=== PATIENT | female | born 1955 | race Caucasian/White ===

== ENCOUNTER 2018-11-03 10:18 | Emergency (ER) | payer OTHER ==
--- NOTE | 2018-11-03 11:32 | RAD REPORT ---
EXAM DESCRIPTION: RAD - Chest Pa And Lat (2 Views) - 11/03/2018 11:19 am CLINICAL HISTORY: COUGH Chest pain. COMPARISON: Chest Single View dated 10/21/2016; Chest Single View dated 10/20/2016; Chest Single Vie w dated 10/19/2016; Chest Pa And Lat (2 Views) dated 06/03/2016 FINDINGS: The lungs are clear. The heart is upper limit of normal in size. No displaced fractures. IMPRESSION: No acute or concerning finding suspected.
--- NOTE | 2018-11-03 12:01 | ER ---
Nurse's Notes [facility] Name: Sierra Loaiza Age: 62 yrs Sex: Female : 1955 Arrival Date: 11/03/2018 Time: 10:22 Bed 20 Private MD: Felipe Bailey Diagnosis: Acute bronchitis Presentation: 11/03 10:29 Presenting complaint: Patient states: Cough for 2 weeks with SOB. Patient is in NAD at this time. Has not seen PCP. Transition of care: patient was not received from another setting of care. Onset of symptoms was October 21, 2018. Risk Assessment: Do you want to hurt yourself or someone else? Patient reports no desire to harm self or others. Initial Sepsis Screen: Does the patient meet any 2 criteria? No. Patient's initial sepsis screen is negative. Does the patient have a suspected source of infection? No. Patient's initial sepsis screen is negative. Care prior to arrival: None. 10:29 Method Of Arrival: Ambulatory aj 10:29 Acuity: DENAE 3 aj Triage Assessment: 10:33 General: Appears in no apparent distress. comfortable, Behavior is calm, cooperative, aj appropriate for age. Pain: Denies pain. Neuro: Level of Consciousness is awake, alert, obeys commands, Oriented to person, place, time, situation, Appropriate for age. Respiratory: Reports shortness of breath cough that is Onset: The symptoms/episode began/occurred gradually, the patient has mild shortness of breath. Derm: Skin is intact, is healthy with good turgor, Skin is pink, warm \\T\\ dry. normal. Historical: - Allergies: 10:33 PENICILLINS; aj 10:33 Sulfa (Sulfonamide Antibiotics); aj - Home Meds: 10:33 aspirin 325 mg Oral tab 1 tab once daily [Active]; novalin 70/30 40 units qam [Active]; aj Novalin 70/30 50 units in AM 40 units in PM [Active]; repaglinide 1 mg oral tab 1 tab 3 times per day [Active]; losartan-hydrochlorothiazide 100-25 mg Oral tab 1 tab once daily [Active]; isosorbide mononitrate 30 mg Oral Tb24 1 tab once daily [Active]; citalopram 20 mg tab 1 tab once daily [Active]; levothyroxine 150 mcg tab 1 tab once daily [Active]; omeprazole 20 mg Oral cpDR 1 cap once daily [Active]; potassium chloride 10 mEq Oral cpER 1 cap once daily [Active]; multivitamin Oral cap daily [Active]; meclizine 25 mg Oral tab 1 tab once daily [Active]; furosemide 20 mg Oral tab 1 tab once daily [Active]; ProAir HFA 90 mcg/actuation inhalation HFAA 1 puff every 4 hours [Active]; - PMHx: 10:33 "irregular heart beat"; Diabetes - IDDM; Hypertension; Hypothyroidism; Myocardial aj infarction; - PSHx: 10:33 Cholecystectomy; D \\T\\ C; laminectomy; aj - Immunization history:: Adult Immunizations up to date. - Social history:: Smoking status: Patient/guardian denies using tobacco. - Ebola Screening: : Patient negative for fever greater than or equal to 101.5 degrees Fahrenheit, and additional compatible Ebola Virus Disease symptoms Patient denies exposure to infectious person Patient denies travel to an Ebola-affected area in the 21 days before illness onset No symptoms or risks identified at this time. Screenin:35 Abuse screen: Denies threats or abuse. Denies injuries from another. Nutritional sv screening: No deficits noted. Tuberculosis screening: No symptoms or risk factors identified. Fall Risk None identified. Assessment: 10:45 General: Appears in no apparent distress. uncomfortable, obese, Behavior is calm, sv cooperative, appropriate for age. Neuro: Level of Consciousness is awake, alert, obeys commands, Oriented to person, place, time, situation, Moves all extremities. Full function Gait is steady, Speech is normal. Respiratory: Reports cough that is persistent pain with cough Airway is patent Respiratory effort is even, unlabored, Respiratory pattern is regular, symmetrical. Derm: Skin is pink, warm \\T\\ dry. 12:15 Reassessment: Patient appears in no apparent distress at this time. No changes from sv previously documented assessment. Patient and/or family updated on plan of care and expected duration. Pain level reassessed. Patient is alert, oriented x 3, equal unlabored respirations, skin warm/dry/pink. Vital Signs: 10:33 BP 128 / 62; Pulse 72; Resp 19; Temp 97.0; Pulse Ox 100% on R/A; Weight 113.4 kg; aj Height 5 ft. 7 in. (170.18 cm); 10:33 Body Mass Index 39.16 (113.40 kg, 170.18 cm) ED Course: 10:22 Patient arrived in ED. sb2 10:23 Felipe Bailey DO is Private Physician. sb2 10:30 Triage completed. aj 10:33 Arm band placed on right wrist. Patient placed in an exam room. aj 10:35 Milagros Herring, RN is Primary Nurse. sv 10:35 Patient has correct armband on for positive identification. Bed in low position. sv 10:37 Yvonne Fletcher FNP-C is PHCP. kb 10:37 Colten Blair MD is Attending Physician. kb 11:18 Chest Pa And Lat (2 Views) XRAY In Process Unspecified. EDMS 12:18 No provider procedures requiring assistance completed. Patient did not have IV access sv during this emergency room visit. Administered Medications: No medications were administered Outcome: 12:01 Discharge ordered by MD. kb 12:18 Patient left the ED. sv 12:18 Discharged to home ambulatory. sv 12:18 Condition: stable 12:18 Discharge instructions given to patient, Instructed on discharge instructions, follow up and referral plans. medication usage, Demonstrated understanding of instructions, follow-up care, medications, Prescriptions given X 1. Signatures: Dispatcher [employer] EDMS Yvonne Fletcher FNP-C FNP-Milagros Chaparro, RN Miranda Staples RN RN Ana Cristina Denis sb2
--- NOTE | 2018-11-03 12:01 | EDPHYS ---
Physician Documentation [facility] Name: Sierra Loaiza Age: 62 yrs Sex: Female : 1955 Arrival Date: 11/03/2018 Time: 10:22 Bed 20 Private MD: Felipe Bailey ED Physician Colten Blair HPI: 11/03 10:57 This 62 yrs old Female presents to ER via Ambulatory with complaints of kb Productive Cough, Body Aches. 10:57 The patient or guardian reports cough, that is intermittent, described as moderate, kb with productive sputum, flu symptoms, arthralgias, myalgias. Onset: The symptoms/episode began/occurred 1.5 week(s) ago. Severity of symptoms: At their worst the symptoms were mild, moderate, in the emergency department the symptoms are unchanged. Modifying factors: The symptoms are alleviated by nothing, the symptoms are aggravated by nothing. Associated signs and symptoms: Pertinent positives: rhinorrhea, Pertinent negatives: chest pain, diarrhea, ear ache, fever, nausea, sore throat, vomiting. The patient has not experienced similar symptoms in the past. The patient has not recently seen a physician. Pt reports cough, congestion, chills, body aches since before . Historical: - Allergies: 10:33 PENICILLINS; aj 10:33 Sulfa (Sulfonamide Antibiotics); aj - Home Meds: 10:33 aspirin 325 mg Oral tab 1 tab once daily [Active]; novalin 70/30 40 units qam [Active]; aj Novalin 70/30 50 units in AM 40 units in PM [Active]; repaglinide 1 mg oral tab 1 tab 3 times per day [Active]; losartan-hydrochlorothiazide 100-25 mg Oral tab 1 tab once daily [Active]; isosorbide mononitrate 30 mg Oral Tb24 1 tab once daily [Active]; citalopram 20 mg tab 1 tab once daily [Active]; levothyroxine 150 mcg tab 1 tab once daily [Active]; omeprazole 20 mg Oral cpDR 1 cap once daily [Active]; potassium chloride 10 mEq Oral cpER 1 cap once daily [Active]; multivitamin Oral cap daily [Active]; meclizine 25 mg Oral tab 1 tab once daily [Active]; furosemide 20 mg Oral tab 1 tab once daily [Active]; ProAir HFA 90 mcg/actuation inhalation HFAA 1 puff every 4 hours [Active]; - PMHx: 10:33 "irregular heart beat"; Diabetes - IDDM; Hypertension; Hypothyroidism; Myocardial aj infarction; - PSHx: 10:33 Cholecystectomy; D \\T\\ C; laminectomy; aj - Immunization history:: Adult Immunizations up to date. - Social history:: Smoking status: Patient/guardian denies using tobacco. - Ebola Screening: : Patient negative for fever greater than or equal to 101.5 degrees Fahrenheit, and additional compatible Ebola Virus Disease symptoms Patient denies exposure to infectious person Patient denies travel to an Ebola-affected area in the 21 days before illness onset No symptoms or risks identified at this time. ROS: 10:56 ENT: Negative for injury, pain, and discharge, Neck: Negative for injury, pain, and kb swelling, Cardiovascular: Negative for chest pain, palpitations, and edema, Abdomen/GI: Negative for abdominal pain, nausea, vomiting, diarrhea, and constipation, Back: Negative for injury and pain, MS/Extremity: Negative for injury and deformity, Skin: Negative for injury, rash, and discoloration, Neuro: Negative for headache, weakness, numbness, tingling, and seizure. 10:56 Constitutional: Positive for body aches, chills, fatigue, malaise, Negative for fever, poor PO intake, weight loss. 10:56 Respiratory: Positive for cough, "sounds productive", Negative for dyspnea on exertion, hemoptysis, orthopnea, pleurisy, shortness of breath, wheezing. Exam: 10:57 Constitutional: This is a well developed, well nourished patient who is awake, alert, kb and in no acute distress. Head/Face: Normocephalic, atraumatic. ENT: Nares patent. No nasal discharge, no septal abnormalities noted. Tympanic membranes are normal and external auditory canals are clear. Oropharynx with no redness, swelling, or masses, exudates, or evidence of obstruction, uvula midline. Mucous membranes moist. Neck: Trachea midline, no thyromegaly or masses palpated, and no cervical lymphadenopathy. Supple, full range of motion without nuchal rigidity, or vertebral point tenderness. No Meningismus. Chest/axilla: Normal chest wall appearance and motion. Nontender with no deformity. No lesions are appreciated. Cardiovascular: Regular rate and rhythm with a normal S1 and S2. No gallops, murmurs, or rubs. Normal PMI, no JVD. No pulse deficits. Respiratory: Lungs have equal breath sounds bilaterally, clear to auscultation and percussion. No rales, rhonchi or wheezes noted. No increased work of breathing, no retractions or nasal flaring. Abdomen/GI: Soft, non-tender, with normal bowel sounds. No distension or tympany. No guarding or rebound. No evidence of tenderness throughout. Skin: Warm, dry with normal turgor. Normal color with no rashes, no lesions, and no evidence of cellulitis. MS/ Extremity: Pulses equal, no cyanosis. Neurovascular intact. Full, normal range of motion. Neuro: Awake and alert, GCS 15, oriented to person, place, time, and situation. Cranial nerves II-XII grossly intact. Motor strength 5/5 in all extremities. Sensory grossly intact. Cerebellar exam normal. Normal gait. Vital Signs: 10:33 BP 128 / 62; Pulse 72; Resp 19; Temp 97.0; Pulse Ox 100% on R/A; Weight 113.4 kg; aj Height 5 ft. 7 in. (170.18 cm); 10:33 Body Mass Index 39.16 (113.40 kg, 170.18 cm) aj MDM: 10:37 Patient medically screened. kb 10:57 Data reviewed: vital signs, nurses notes. Data interpreted: Pulse oximetry: on room air kb is 100 %. Interpretation: normal. 12:00 Counseling: I had a detailed discussion with the patient and/or guardian regarding: the kb historical points, exam findings, and any diagnostic results supporting the discharge/admit diagnosis, lab results, radiology results, the need for outpatient follow up, a family practitioner, to return to the emergency department if symptoms worsen or persist or if there are any questions or concerns that arise at home. 11/03 10:36 Order name: Flu; Complete Time: 11:09 sv 11/03 10:36 Order name: Strep; Complete Time: 11: sv 11/03 10:40 Order name: Chest Pa And Lat (2 Views) XRAY; Complete Time: 11:35 kb 11/03 11:08 Order name: Throat Culture EDMS Administered Medications: No medications were administered Disposition: 15:06 Co-signature as Attending Physician, Colten KELLY I agree with the assessment and [facility] plan of care. Disposition: 11/03/18 12:01 Discharged to Home. Impression: Acute bronchitis. - Condition is Stable. - Discharge Instructions: Acute Bronchitis, [id number]. - Prescriptions for Prednisone 20 mg Oral Tablet - take 1 tablet by ORAL route once daily for 5 days; 5 tablet. - Medication Reconciliation Form, Thank You Letter, Antibiotic Education, Prescription Opioid Use form. - Follow up: Emergency Department; When: As needed; Reason: Worsening of condition. Follow up: Private Physician; When: 2 - 3 days; Reason: Recheck today's complaints, Continuance of care, Re-evaluation by your physician. Signatures: Dispatcher [employer] Yvonne Vitale FNP-C FNP-Milagros Chaparro RN Miranda Staples RN RN aj Anderson, Corey, MD MD cha Corrections: (The following items were deleted from the chart) 12:18 12:01 11/03/2018 12:01 Discharged to Home. Impression: Acute bronchitis. Condition is sv Stable. Forms are Medication Reconciliation Form, Thank You Letter, Antibiotic Education, Prescription Opioid Use. Follow up: Emergency Department; When: As needed; Reason: Worsening of condition. Follow up: Private Physician; When: 2 - 3 days; Reason: Recheck today's complaints, Continuance of care, Re-evaluation by your physician. kb
[2018-11-03 12:35] VITALS: BP 128/62; TEMP 97; O2SAT 100
== END 2018-11-03 12:18 | disposition home or self-care (01) ==
LOC: ER 10:18
DX: J20.9 Acute bronchitis, unspecified (principal); E11.9 Type 2 diabetes mellitus without complications; I10 Essential (primary) hypertension; E03.9 Hypothyroidism, unspecified; Z88.0 Allergy status to penicillin; Z88.2 Allergy status to sulfonamides
CPT/HCPCS: 71046; 87070; 87081; 87804; 99283

== ENCOUNTER 2018-12-20 19:21 | Emergency (ER) | payer OTHER ==
--- NOTE | 2018-12-20 20:29 | EDPHYS ---
Physician Documentation [facility] Name: Sierra Loaiza Age: 63 yrs Sex: Female : 1955 Arrival Date: 12/20/2018 Time: 19:30 Bed 18 Private MD: ED Physician Jf Vigil HPI: 12/20 20:26 This 63 yrs old Female presents to ER via Ambulatory with complaints of RAT ma2 BITE. 20:26 Onset: The symptoms/episode began/occurred suddenly, 1 day(s) ago. Animal information: ma2 Patient/Caregiver unable to provide information related to the animal. Associated signs and symptoms: Pertinent negatives: fever, motor deficit, numbness distal to wound. Severity of symptoms: At their worst the symptoms were mild, in the emergency department the symptoms have resolved. The patient has not experienced similar symptoms in the past. Historical: - Allergies: 20:20 PENICILLINS; bb 20:20 Sulfa (Sulfonamide Antibiotics); bb 20:20 jasmin; bb - Home Meds: 20:20 aspirin 325 mg Oral tab 1 tab once daily [Active]; citalopram 20 mg tab 1 tab once bb daily [Active]; furosemide 20 mg Oral tab 1 tab once daily [Active]; isosorbide mononitrate 30 mg Oral Tb24 1 tab once daily [Active]; levothyroxine 150 mcg tab 1 tab once daily [Active]; losartan-hydrochlorothiazide 100-25 mg Oral tab 1 tab once daily [Active]; meclizine 25 mg Oral tab 1 tab once daily [Active]; multivitamin Oral cap daily [Active]; novalin 70/30 40 units qam [Active]; Novalin 70/30 50 units in AM 40 units in PM [Active]; omeprazole 20 mg Oral cpDR 1 cap once daily [Active]; potassium chloride 10 mEq Oral cpER 1 cap once daily [Active]; ProAir HFA 90 mcg/actuation inhalation HFAA 1 puff every 4 hours [Active]; repaglinide 1 mg Oral tab 1 tab 3 times per day [Active]; - PMHx: 20:20 "irregular heart beat"; Diabetes - IDDM; Hypertension; Hypothyroidism; Myocardial bb infarction; - PSHx: 20:20 Cholecystectomy; D \\T\\ C; laminectomy; bb - Immunization history:: Adult Immunizations up to date, Last tetanus immunization: unknown. - Social history:: Smoking status: unknown Patient/guardian denies using alcohol, street drugs, The patient lives with family. - Ebola Screening: : No symptoms or risks identified at this time. - Family history:: not pertinent. ROS: 20:26 Constitutional: Negative for fever, chills, and weight loss. ma2 20:26 All other systems are negative. Exam: 20:26 Constitutional: This is a well developed, well nourished patient who is awake, alert, ma2 and in no acute distress. Chest/axilla: Normal chest wall appearance and motion. Nontender with no deformity. No lesions are appreciated. Cardiovascular: Regular rate and rhythm with a normal S1 and S2. No gallops, murmurs, or rubs. Normal PMI, no JVD. No pulse deficits. Respiratory: Lungs have equal breath sounds bilaterally, clear to auscultation and percussion. No rales, rhonchi or wheezes noted. No increased work of breathing, no retractions or nasal flaring. Abdomen/GI: Soft, non-tender, with normal bowel sounds. No distension or tympany. No guarding or rebound. No evidence of tenderness throughout. Skin: Warm, dry with normal turgor. Normal color with no rashes, no lesions, and no evidence of cellulitis. Vital Signs: 20:20 BP 153 / 72; Pulse 72; Resp 16 S; Temp 98.1(O); Pulse Ox 98% on R/A; Weight 116.12 kg bb (R); Height 5 ft. 7 in. (170.18 cm) (R); Pain 6/10; 20:20 Body Mass Index 40.09 (116.12 kg, 170.18 cm) bb MDM: 20:25 Patient medically screened. ma2 20:26 Differential diagnosis: superficial laceration. Data reviewed: vital signs, nurses ma2 notes. Counseling: I had a detailed discussion with the patient and/or guardian regarding: the historical points, exam findings, and any diagnostic results supporting the discharge/admit diagnosis, the presence of at least one elevated blood pressure reading (>120/80) during this emergency department visit, the need for outpatient follow up. Administered Medications: 20:45 Drug: Tetanus-Diphtheria Toxoid Adult 0.5 ml {Mixologist: Reissued. Exp: jb4 11/02/2020. Lot #: [id number]. } Route: IM; Site: right deltoid; 21:03 Follow up: Response: No adverse reaction jb4 Disposition: 12/20/18 20:28 Discharged to Home. Impression: Bitten by mouse. - Condition is Stable. - Discharge Instructions: Animal Bite. - Medication Reconciliation Form, Thank You Letter, Antibiotic Education, Prescription Opioid Use form. - Follow up: Private Physician; When: Tomorrow; Reason: Continuance of care. Signatures: Rosalva Perkins RN RN Yeyo Mahoney RN RN jb4 Jf Vigil MD MD ma2 Corrections: (The following items were deleted from the chart) 21:03 20:28 12/20/2018 20:28 Discharged to Home. Impression: Bitten by mouse. Condition is jb4 Stable. Forms are Medication Reconciliation Form, Thank You Letter, Antibiotic Education, Prescription Opioid Use. Follow up: Private Physician; When: Tomorrow; Reason: Continuance of care. ma2
--- NOTE | 2018-12-20 20:29 | ER ---
Nurse's Notes [facility] Name: Sierra Loaiza Age: 63 yrs Sex: Female : 1955 Arrival Date: 12/20/2018 Time: 19:30 Bed 18 Private MD: Diagnosis: Bitten by mouse Presentation: 12/20 20:15 Presenting complaint: Patient states: pt was bit by a mouse she had trapped yesterday bb on her left thumb. Transition of care: patient was not received from another setting of care. Onset of symptoms was December 19, 2018. Risk Assessment: Do you want to hurt yourself or someone else? Patient reports no desire to harm self or others. Initial Sepsis Screen: Does the patient meet any 2 criteria? No. Patient's initial sepsis screen is negative. Does the patient have a suspected source of infection? No. Patient's initial sepsis screen is negative. Care prior to arrival: None. 20:15 Method Of Arrival: Ambulatory bb 20:15 Acuity: DENAE 4 bb Historical: - Allergies: 20:20 PENICILLINS; bb 20:20 Sulfa (Sulfonamide Antibiotics); bb 20:20 jasmin; bb - Home Meds: 20:20 aspirin 325 mg Oral tab 1 tab once daily [Active]; citalopram 20 mg tab 1 tab once bb daily [Active]; furosemide 20 mg Oral tab 1 tab once daily [Active]; isosorbide mononitrate 30 mg Oral Tb24 1 tab once daily [Active]; levothyroxine 150 mcg tab 1 tab once daily [Active]; losartan-hydrochlorothiazide 100-25 mg Oral tab 1 tab once daily [Active]; meclizine 25 mg Oral tab 1 tab once daily [Active]; multivitamin Oral cap daily [Active]; novalin 70/30 40 units qam [Active]; Novalin 70/30 50 units in AM 40 units in PM [Active]; omeprazole 20 mg Oral cpDR 1 cap once daily [Active]; potassium chloride 10 mEq Oral cpER 1 cap once daily [Active]; ProAir HFA 90 mcg/actuation inhalation HFAA 1 puff every 4 hours [Active]; repaglinide 1 mg Oral tab 1 tab 3 times per day [Active]; - PMHx: 20:20 "irregular heart beat"; Diabetes - IDDM; Hypertension; Hypothyroidism; Myocardial bb infarction; - PSHx: 20:20 Cholecystectomy; D \\T\\ C; laminectomy; bb - Immunization history:: Adult Immunizations up to date, Last tetanus immunization: unknown. - Social history:: Smoking status: unknown Patient/guardian denies using alcohol, street drugs, The patient lives with family. - Ebola Screening: : No symptoms or risks identified at this time. - Family history:: not pertinent. Screenin:25 Abuse screen: Denies threats or abuse. Nutritional screening: No deficits noted. jb4 Tuberculosis screening: No symptoms or risk factors identified. Fall Risk None identified. Assessment: 20:25 General: Appears in no apparent distress. comfortable, Behavior is calm, cooperative, jb4 appropriate for age. Pain: Complains of pain in palmar aspect of distal phalanx of left thumb Pain does not radiate. Pain currently is 0 out of 10 on a pain scale. Neuro: Level of Consciousness is awake, alert, obeys commands, Oriented to person, place, time, situation. Cardiovascular: Patient's skin is warm and dry. Respiratory: Airway is patent Respiratory effort is even, unlabored, Respiratory pattern is regular, symmetrical. GI: No signs and/or symptoms were reported involving the gastrointestinal system. : No signs and/or symptoms were reported regarding the genitourinary system. EENT: No signs and/or symptoms were reported regarding the EENT system. Derm: Skin is intact, Skin is pink, warm \\T\\ dry. Musculoskeletal: Circulation, motion, and sensation intact. Vital Signs: 20:20 BP 153 / 72; Pulse 72; Resp 16 S; Temp 98.1(O); Pulse Ox 98% on R/A; Weight 116.12 kg bb (R); Height 5 ft. 7 in. (170.18 cm) (R); Pain 6/10; 20:20 Body Mass Index 40.09 (116.12 kg, 170.18 cm) ED Course: 19:30 Patient arrived in ED. es 20:17 Triage completed. bb 20:20 Arm band placed on Patient placed in an exam room, on a stretcher, on pulse oximetry. bb Family accompanied patient. 20:25 Jf Vigil MD is Attending Physician. ma2 20:25 Patient has correct armband on for positive identification. Bed in low position. Call jb4 light in reach. Side rails up X 1. Pulse ox on. NIBP on. 20:27 Yeyo Monson, RN is Primary Nurse. jb4 21:01 No provider procedures requiring assistance completed. Patient did not have IV access jb4 during this emergency room visit. Administered Medications: 20:45 Drug: Tetanus-Diphtheria Toxoid Adult 0.5 ml {Library Consultant: [employer]. Exp: jb4 11/02/2020. Lot #: [id number]. } Route: IM; Site: right deltoid; 21:03 Follow up: Response: No adverse reaction jb4 Outcome: 20:28 Discharge ordered by MD. mulligan 21:01 Discharged to home ambulatory. jb4 21:01 Condition: stable 21:01 Discharge instructions given to patient, Instructed on discharge instructions, follow up and referral plans. Demonstrated understanding of instructions, follow-up care. 21:03 Patient left the ED. jb Signatures: Argenis Hawthorne Brenda, RN RN bb Bryson, James, GABRIEL RIOS jb4 Jf Vigil MD MD ma2
[2018-12-20] MEDS ORDERED: TETANUS & DIPHTHERIA TOX,ADULT 0.5 ML VIAL ONE (20:47)
[2018-12-20 22:19] VITALS: BP 153/72; TEMP 98.1; O2SAT 98
== END 2018-12-20 21:03 | disposition home or self-care (01) ==
LOC: ER 19:21
DX: S61.259A Open bite of unspecified finger without damage to nail, initial encounter (principal); W53.01XA Bitten by mouse, initial encounter; E11.9 Type 2 diabetes mellitus without complications; I10 Essential (primary) hypertension; E03.9 Hypothyroidism, unspecified; I25.2 Old myocardial infarction; Z79.82 Long term (current) use of aspirin; Z79.4 Long term (current) use of insulin; Z88.0 Allergy status to penicillin; Z88.2 Allergy status to sulfonamides
CPT/HCPCS: 90714; 99283

== ENCOUNTER → 2021-07-31 | Day surgery (SDC) | payer OTHER ==
--- NOTE | 2021-07-31 15:45 | RAD REPORT ---
EXAM DESCRIPTION: US - Breast Core BX w/US Guidance - 07/31/2021 10:24 am CLINICAL HISTORY: ICD R 92.8 COMPARISON: March 20, 2021 ultrasound TECHNIQUE: The risks, benefits alternatives to the procedure were explained to the patient and infor med consent obtained. Skin and subcutaneous tissues anesthetized with lidocaine. Under sonographic guidance, 5 core biopsies of the mass at the 3 o'clock position in the right breast was obtained. 2 centimeter specimens taken. Tissue given to pathology. Subsequently a localizing clip was placed into the mass. Patient experienced no immediate complication IMPRESSION: Technically successful ultrasound-guided core biopsy of a suspicious lesion in the right breast.
== END ==
LOC: DS 09:36
PROVIDERS: ATTEND Clinical Nurse Specialist Women's Health
DX: R92.8 Other abnormal and inconclusive findings on diagnostic imaging of breast (principal)
CPT/HCPCS: 19083; 88305

== ENCOUNTER 2021-08-27 10:40 | Emergency (ER) | payer OTHER ==
[2021-08-27 11:25] LABS: Absolute Lymphocytes (CBC) 1.9 K/uL (0.7-4.9); Basophils % 0.7 % (0-1.3); Hematocrit 41.5 % (36.0-45.0); Lymphocytes % 25.8 % (15.3-44.8); MPV 7.4 fL (7.6-11.3); RBC Red Blood Cell Count 4.63 M/uL (3.86-4.86)
[2021-08-27 11:40] LABS: Albumin 3.5 g/dL (3.4-5.0); Bilirubin Direct 0.2 mg/dL (0-0.2); Bilirubin Total 0.6 mg/dL (0.2-1.0); Magnesium 2.5 mg/dL (1.8-2.4); Potassium 4.2 mmol/L (3.5-5.1); Protein, Total 7.7 g/dL (6.4-8.2)
[2021-08-27] MEDS ORDERED: NA CHLORIDE 0.9% 500 ML ONE (11:45)
[2021-08-27 12:30] LABS: Protime INR 0.96
--- NOTE | 2021-08-27 12:31 | EDPHYS ---
Physician Documentation [facility] Name: Sierra Loaiza Age: 65 yrs Sex: Female : 1955 Arrival Date: 08/27/2021 Time: 10:41 Bed 23 Private MD: Devan Thurman F; Vang, Na ED Physician Blane Russell HPI: 08/27 11:54 This 65 yrs old Female presents to ER via Wheelchair with complaints of Blood jr8 Pressure Problem, Dizziness. 11:54 Onset: The symptoms/episode began/occurred acutely, just prior to arrival, today. jr8 Associated signs and symptoms: Pertinent positives: Lightheadedness. Modifying factors: The patient symptoms are alleviated by rest, the patient symptoms are aggravated by Standing up. The patient has experienced similar episodes in the past, a few times. The patient has not recently seen a physician. This is a 65-year-old female that presented to the emergency room for dizziness and low blood pressure symptoms. Patient stated that her blood pressure was in the 80s this morning. Had gotten up and felt lightheaded. Has had this happen in the past. Has had no recent adjustment in medications. Patient currently feeling generally fatigued but all other symptoms have resolved at this time. Currently being seen by cardiology for frequent arrhythmia and is about to have a Holter monitor placed on her. 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 Historical: - Allergies: 10:46 NEERU; tw5 10:46 PENICILLINS; tw5 10:46 Sulfa (Sulfonamide Antibiotics); tw5 - Home Meds: 11:02 aspirin 325 mg Oral tab 1 tab once daily [Active]; citalopram 20 mg tab 1 tab once jw6 daily [Active]; furosemide 20 mg Oral tab 1 tab once daily [Active]; isosorbide mononitrate 30 mg Oral Tb24 1 tab once daily [Active]; levothyroxine 150 mcg tab 1 tab once daily [Active]; losartan-hydrochlorothiazide 100-25 mg Oral tab 1 tab once daily [Active]; meclizine 25 mg Oral tab 1 tab once daily [Active]; multivitamin Oral cap daily [Active]; novalin 70/30 40 units qam [Active]; Novalin 70/30 50 units in AM 40 units in PM [Active]; omeprazole 20 mg Oral cpDR 1 cap once daily [Active]; potassium chloride 10 mEq Oral cpER 1 cap once daily [Active]; ProAir HFA 90 mcg/actuation inhalation HFAA 1 puff every 4 hours [Active]; repaglinide 1 mg Oral tab 1 tab 3 times per day [Active]; - PMHx: 10:46 "irregular heart beat"; Diabetes - IDDM; Hypertension; Hypothyroidism; Myocardial tw5 infarction; - PSHx: 10:46 Cholecystectomy; laminectomy 1999; hysterectomy april 2020; tw5 - Immunization history:: Client reports receiving the 2nd dose of the Covid vaccine. - Social history:: Smoking status: Patient denies any tobacco usage or history of. ROS: 11:54 Eyes: Negative for injury, pain, redness, and discharge, ENT: Negative for injury, jr8 pain, and discharge, Neck: Negative for injury, pain, and swelling, Cardiovascular: Negative for chest pain, palpitations, and edema, Respiratory: Negative for shortness of breath, cough, wheezing, and pleuritic chest pain, Abdomen/GI: Negative for abdominal pain, nausea, vomiting, diarrhea, and constipation, Back: Negative for injury and pain, MS/Extremity: Negative for injury and deformity, Skin: Negative for injury, rash, and discoloration. 11:54 Neuro: Positive for dizziness. Exam: 11:54 Constitutional: This is a well developed, well nourished patient who is awake, alert, jr8 and in no acute distress. Eyes: Pupils equal round and reactive to light, extra-ocular motions intact. Lids and lashes normal. Conjunctiva and sclera are non-icteric and not injected. Cornea within normal limits. Periorbital areas with no swelling, redness, or edema. Neck: Trachea midline, no thyromegaly or masses palpated, and no cervical lymphadenopathy. Supple, full range of motion without nuchal rigidity, or vertebral point tenderness. No Meningismus. Cardiovascular: Regular rate and rhythm with a normal S1 and S2. No gallops, murmurs, or rubs. Normal PMI, no JVD. No pulse deficits. Respiratory: Lungs have equal breath sounds bilaterally, clear to auscultation and percussion. No rales, rhonchi or wheezes noted. No increased work of breathing, no retractions or nasal flaring. Abdomen/GI: Soft, non-tender, with normal bowel sounds. No distension or tympany. No guarding or rebound. No evidence of tenderness throughout. Back: No spinal tenderness. No costovertebral tenderness. Full range of motion. Skin: Warm, dry with normal turgor. Normal color with no rashes, no lesions, and no evidence of cellulitis. MS/ Extremity: Pulses equal, no cyanosis. Neurovascular intact. Full, normal range of motion. Neuro: Awake and alert, GCS 15, oriented to person, place, time, and situation. Cranial nerves II-XII grossly intact. Motor strength 5/5 in all extremities. Sensory grossly intact. Cerebellar exam normal. Vital Signs: 10:43 BP 139 / 55; Pulse 72; Resp 18; Temp 97.9(O); Pulse Ox 98% on R/A; Weight 113.85 kg; tw5 Height 5 ft. 7 in. (170.18 cm); Pain 0/10; 11:00 BP 130 / 58; Pulse 69; Resp 16; Pulse Ox 96% on R/A; jw6 11:00 Temp 98.1(O); jw6 11:06 Weight 114.76 kg; Height 5 ft. 7 in. (170.18 cm); Pain 0/10; jw6 11:30 BP 123 / 70 Supine; Pulse 67; Resp 15; Pulse Ox 95% on R/A; jw6 11:30 BP 114 / 71 Sitting; Pulse 70; Resp 15; Pulse Ox 98% on R/A; jw6 11:30 BP 102 / 64 Standing; Pulse 77; Resp 16; Pulse Ox 98% on R/A; jw6 12:30 BP 123 / 55; Pulse 73; Resp 15; Pulse Ox 99% ; jl7 11:06 Body Mass Index 39.62 (114.76 kg, 170.18 cm) jw6 MDM: 11:00 Patient medically screened. 8 12:30 Data reviewed: vital signs, nurses notes, lab test result(s), EKG. Data interpreted: jr8 Pulse oximetry: on room air is 98 %. Interpretation: normal. Counseling: I had a detailed discussion with the patient and/or guardian regarding: the historical points, exam findings, and any diagnostic results supporting the discharge/admit diagnosis, lab results, the need for outpatient follow up, a comedian, a family practitioner, to return to the emergency department if symptoms worsen or persist or if there are any questions or concerns that arise at home. Response to treatment: the patient's symptoms have markedly improved after treatment. ED course: Patient no longer feeling dizzy. Was able to get up and mobilize without any complaints. Hemodynamically stable at this time. Will discharge home to follow with cardiology. Knows to come back for further evaluations if she were to worsen.. 08/27 11:08 Order name: CBC with Diff 08/27 11:08 Order name: PT-INR 08/27 11:07 Order name: Finger Stick; Complete Time: 11:07 [facility] 08/27 11:08 Order name: Troponin (emerg Dept Use Only) 08/27 11:08 Order name: EKG; Complete Time: 12:19 08/27 11:08 Order name: Cardiac monitoring; Complete Time: 11: [facility] 08/27 11:08 Order name: EKG - Nurse/Tech; Complete Time: 11:17 08/27 11:08 Order name: IV Saline Lock; Complete Time: 11:17 08/27 11:08 Order name: Labs collected and sent; Complete Time: 11: 08/27 11:08 Order name: O2 Per Protocol; Complete Time: 11:08/27 11:08 Order name: O2 Sat Monitoring; Complete Time: 11:17 08/27 11:08 Order name: Orthostatics; Complete Time: 11:29 [facility] 08/27 12:13 Order name: Labs - recollect needed: recollect light blue; Complete Time: 12:19 bd Administered Medications: 11:29 Drug: NS 0.9% 500 ml Route: IV; Rate: bolus; Site: right antecubital; jw6 12:13 Follow up: Response: No adverse reaction; IV Status: Completed infusion; IV Intake: jw6 500ml Disposition: 16:28 Co-signature as Attending Physician, Blane Russell MD I agree with the assessment and rn plan of care. Attestation: The patient's history, exam findings, diagnostics, and a summary of any interventions or procedures was reviewed in detail with Eladio DIALLO. Disposition Summary: 08/27/21 12:31 Discharge Ordered Location: Home jr8 Problem: new jr8 Symptoms: have improved jr8 Condition: Stable jr8 Diagnosis - Orthostatic hypotension jr8 Followup: jr8 - With: Devan Thurman MD - When: 2 - 3 days - Reason: Recheck today's complaints, Continuance of care, Re-evaluation by your physician Discharge Instructions: - Discharge Summary Sheet jr8 - Orthostatic Hypotension jr8 Forms: - Medication Reconciliation Form jr8 - Thank You Letter jr8 - Antibiotic Education jr8 - Prescription Opioid Use jr8 Signatures: Dispatcher [employer] EDMS Alison Emery Roman, MD MD rn Eladio Herrera PA PA jr8 Vanna Castaneda tw5 Olamide Hester jw6
--- NOTE | 2021-08-27 12:31 | ER ---
Nurse's Notes [facility] Name: Sierra Loaiza Age: 65 yrs Sex: Female : 1955 Arrival Date: 08/27/2021 Time: 10:41 Bed 23 Private MD: Devan Thurman F; Vang, Na Diagnosis: Orthostatic hypotension Presentation: 08/27 10:43 Chief complaint: Patient states: " I got up dizzy this morning, I took my BP this tw5 morning and it was 81/60. I still don't feel real good." Patient denies nausea or vomiting. Patient denies syncope. " I have just been a little wobbly so I have been moving slow". Coronavirus screen: Vaccine status: Patient reports receiving the 2nd dose of the covid vaccine. Date June 21, 2021. Ebola Screen: Patient negative for fever greater than or equal to 101.5 degrees Fahrenheit, and additional compatible Ebola Virus Disease symptoms Patient denies exposure to infectious person. Patient denies travel to an Ebola-affected area in the 21 days before illness onset. Initial Sepsis Screen: Does the patient meet any 2 criteria? No. Patient's initial sepsis screen is negative. Does the patient have a suspected source of infection? No. Patient's initial sepsis screen is negative. Risk Assessment: Do you want to hurt yourself or someone else? Patient reports no desire to harm self or others. Onset of symptoms was August 27, 2021. 10:43 Method Of Arrival: Wheelchair tw5 10:43 Acuity: DENAE 3 tw5 Triage Assessment: 10:46 General: Appears in no apparent distress. Behavior is calm, cooperative. Pain: Denies tw5 pain. Cardiovascular:. Historical: - Allergies: 10:46 NEERU; tw5 10:46 PENICILLINS; tw5 10:46 Sulfa (Sulfonamide Antibiotics); tw5 - Home Meds: 11:02 aspirin 325 mg Oral tab 1 tab once daily [Active]; citalopram 20 mg tab 1 tab once jw6 daily [Active]; furosemide 20 mg Oral tab 1 tab once daily [Active]; isosorbide mononitrate 30 mg Oral Tb24 1 tab once daily [Active]; levothyroxine 150 mcg tab 1 tab once daily [Active]; losartan-hydrochlorothiazide 100-25 mg Oral tab 1 tab once daily [Active]; meclizine 25 mg Oral tab 1 tab once daily [Active]; multivitamin Oral cap daily [Active]; novalin 70/30 40 units qam [Active]; Novalin 70/30 50 units in AM 40 units in PM [Active]; omeprazole 20 mg Oral cpDR 1 cap once daily [Active]; potassium chloride 10 mEq Oral cpER 1 cap once daily [Active]; ProAir HFA 90 mcg/actuation inhalation HFAA 1 puff every 4 hours [Active]; repaglinide 1 mg Oral tab 1 tab 3 times per day [Active]; - PMHx: 10:46 "irregular heart beat"; Diabetes - IDDM; Hypertension; Hypothyroidism; Myocardial tw5 infarction; - PSHx: 10:46 Cholecystectomy; laminectomy 1999; hysterectomy april 2020; tw5 - Immunization history:: Client reports receiving the 2nd dose of the Covid vaccine. - Social history:: Smoking status: Patient denies any tobacco usage or history of. Screenin:00 Abuse screen: Denies threats or abuse. Denies injuries from another. Nutritional jw6 screening: No deficits noted. Tuberculosis screening: No symptoms or risk factors identified. Fall Risk IV access (20 points). Ambulatory Aid- Crutches/Cane/Walker (15 pts). Gait- Weak (10 pts.). Assessment: 11:00 General: Appears in no apparent distress. Behavior is calm, cooperative. Pain: Denies jw6 pain. Neuro: No deficits noted. Cardiovascular: Reports hx of irregular heartbeat. Respiratory: No deficits noted. GI: No deficits noted. : No deficits noted. EENT: No deficits noted. Derm: No deficits noted. Musculoskeletal: No deficits noted. Vital Signs: 10:43 BP 139 / 55; Pulse 72; Resp 18; Temp 97.9(O); Pulse Ox 98% on R/A; Weight 113.85 kg; tw5 Height 5 ft. 7 in. (170.18 cm); Pain 0/10; 11:00 BP 130 / 58; Pulse 69; Resp 16; Pulse Ox 96% on R/A; jw6 11:00 Temp 98.1(O); jw6 11:06 Weight 114.76 kg; Height 5 ft. 7 in. (170.18 cm); Pain 0/10; jw6 11:30 BP 123 / 70 Supine; Pulse 67; Resp 15; Pulse Ox 95% on R/A; jw6 11:30 BP 114 / 71 Sitting; Pulse 70; Resp 15; Pulse Ox 98% on R/A; jw6 11:30 BP 102 / 64 Standing; Pulse 77; Resp 16; Pulse Ox 98% on R/A; jw6 12:30 BP 123 / 55; Pulse 73; Resp 15; Pulse Ox 99% ; jl7 11:06 Body Mass Index 39.62 (114.76 kg, 170.18 cm) jw6 Vitals: 11:30 Cardiac Rhythm Assessment Regular Sinus rhythm W/unifocal PVC's. jw6 ED Course: 10:41 Patient arrived in ED. as 10:41 Melody Montoya MD is Private Physician. as 10:41 Devan Thurman MD is Private Physician. as 10:43 Eladio Herrera PA is PHCP. jr8 10:43 Blane Russell MD is Attending Physician. jr8 10:46 Triage completed. tw5 10:46 Arm band placed on left wrist. tw5 11:00 Olamide Hester is Primary Nurse. jw6 11:00 Patient has correct armband on for positive identification. Placed in gown. Bed in low jw6 position. Call light in reach. Side rails up X2. Adult w/ patient. 11:00 No provider procedures requiring assistance completed. Initial lab(s) drawn, by me, jw6 sent to lab. Inserted saline lock: 20 gauge in right antecubital area, using aseptic technique. Blood collected. 11:02 EKG done, by ED staff, reviewed by Eladio DIALLO. kj1 12:30 Devan Thurman MD is Referral Physician. jr8 12:47 IV discontinued, intact, bleeding controlled, No redness/swelling at site. Pressure jl7 dressing applied. Administered Medications: 11:29 Drug: NS 0.9% 500 ml Route: IV; Rate: bolus; Site: right antecubital; jw6 12:13 Follow up: Response: No adverse reaction; IV Status: Completed infusion; IV Intake: jw6 500ml Intake: 12:13 IV: 500ml; Total: 500ml. jw6 Outcome: 12:31 Discharge ordered by . jr8 12:46 Discharged to home ambulatory. jl7 12:46 Condition: stable 12:46 Discharge instructions given to patient, Instructed on discharge instructions, follow up and referral plans. Demonstrated understanding of instructions, follow-up care. 12:47 Patient left the ED. jl7 Signatures: Carmen Vera Josh, PA PA jr8 Rose Torres RN RN jl7 Maine Fletcher1 Vanna Castaneda 5 Olamide Hester6
[2021-08-27 16:05] VITALS: TEMP 98.1
[2021-08-27 16:10] VITALS: BP 123/55; O2SAT 99
--- NOTE | 2021-08-28 16:10 | EKG ---
Test Date: 2021-08-27 Test Time: 10:59:02 [employer]: EMILY MEASUREMENT RESULTS: Intervals: Rate: 69 IN: 184 QRSD: 80 QT: 430 QTc: 460 [place]: P: 72 IN: 184 QRS: 20 T: 68 INTERPRETIVE STATEMENTS: Normal sinus rhythm Possible Anterior infarct, age undetermined Abnormal ECG Compared to ECG 10/20/2016 07:39:53 No significant changes Electronically Signed On 08-28-21 16:07:19 CDT by Alex Power
== END 2021-08-27 12:47 | disposition home or self-care (01) ==
LOC: ER 10:40
DX: I95.1 Orthostatic hypotension (principal); I10 Essential (primary) hypertension; E11.9 Type 2 diabetes mellitus without complications; E03.9 Hypothyroidism, unspecified; I25.2 Old myocardial infarction; Z79.4 Long term (current) use of insulin; Z88.0 Allergy status to penicillin; Z88.2 Allergy status to sulfonamides; Z91.048 Other nonmedicinal substance allergy status
CPT/HCPCS: 93005; 85025; 80048; 36415; 83735; 85610; 82947; 80076; 84484; 83880; 96360; 99284; J7040